=== PATIENT | male | born 1950 | race Caucasian/White ===

== ENCOUNTER 2016-10-05 19:46 | Emergency (ER) | payer OTHER | END 2016-10-05 20:21 | disposition left against medical advice (07) | LOC: ER1 19:46 | DX: Z53.21 Procedure and treatment not carried out due to patient leaving prior to being seen by health care provider (principal) ==

== ENCOUNTER → 2016-10-21 | Outpatient (CLI) | payer OTHER ==
[2016-10-21 12:38] LABS: HEMOGLOBIN 14.3 gm/dl (14.0-17.5); RED BLOOD COUNT 4.51 M/UL (4.20-5.50); WHITE BLOOD COUNT 3.9 K/UL (4.5-11.0)
[2016-10-21 13:07] LABS: BUN/CREATININE RATIO 15 (0-10)
== END ==
LOC: LAB 12:12
PROVIDERS: Physician Assistant
DX: I10 Essential (primary) hypertension (principal); E78.00 Pure hypercholesterolemia, unspecified
CPT/HCPCS: 36415; 80053; 80061; 85025

== ENCOUNTER 2020-11-29 20:37 | Emergency (ER) | payer MEDICARE, OTHER ==
[2020-11-30] MEDS ORDERED: ERYTHROMYCIN O3.5 GM OD (00:13)
== END 2020-11-30 00:40 | disposition home or self-care (01) ==
LOC: ER1 20:37
DX: H00.022 Hordeolum internum right lower eyelid (principal); I10 Essential (primary) hypertension; E78.5 Hyperlipidemia, unspecified
CPT/HCPCS: 99283

== ENCOUNTER → 2021-07-20 | Outpatient (CLI) | payer MEDICARE, OTHER ==
[~2021-07-20] MED LIST: ERYTHROMYCIN O3.5 GM OD
== END ==
LOC: KOH-I 10:21
DX: M79.671 Pain in right foot (principal); M19.071 Primary osteoarthritis, right ankle and foot
CPT/HCPCS: 73630

== ENCOUNTER → 2021-11-02 | Outpatient (CLI) | payer MEDICARE, OTHER ==
[2021-11-02 10:07] LABS: BUN/CREATININE RATIO 11 (0-10)
== END ==
LOC: LAB 09:10
PROVIDERS: Family Medicine
DX: Z12.5 Encounter for screening for malignant neoplasm of prostate (principal); E78.5 Hyperlipidemia, unspecified
CPT/HCPCS: 36415; 80053; 80061; G0103